=== PATIENT | male | born 1955 | race American Indian/Alaskan Native ===

== ENCOUNTER 2016-09-29 08:40 | Emergency (ER) | payer OTHER ==
[2016-09-29] MEDS ORDERED: REGLAN IV ONE (09:16)
[2016-09-29] MEDS ORDERED: BENADRYL IV ONE (09:16)
--- NOTE | 2016-09-29 10:10 | Cat Scan Report ---
Contrast: History: Headache. Findings: Ventricles are normal in size and midline in location. No evidence of acute ischemia, hemorrhage or mass. No extra axial fluid collection. Normal brainstem and cerebellum. Normal sinuses and mastoid air cells. Impression: Essentially negative CT scan of head.
[2016-09-29 10:22] VITALS: BP 124/80
--- NOTE | 2016-09-29 21:43 | Emergency Department Report ---
Entered by JADA REYES, acting as scribe for MARY DUBON NP. ED Headache HPI - General Chief Complaint: Headache Stated Complaint: MIGRANE/HBP Time Seen by Provider: 09/29/16 09:03 Source: patient Exam Limitations: no limitations - History of Present Illness Initial Comments: 60 year old male with a PMHx of HTN presents to the ED c/o a gradual, acute left -sided headache that began 4 days ago. Patient states he was running 4 days ago and he subsequently began to have a headache at 21:00 that night. Associated symptoms include left eye pain and describes headache as a gradual onset aching and throbbing with intensity of a 7 out of 10, but he denies light sensitivity, visual changes, chest pain, SOB, nausea, thunderclap headache, nausea, and vomiting. Reports headaches worsens with movement and is alleviated by taking Excedrin and BC powders. Patient also stated headache is relieved with darkness. Denies any recent head trauma and Hx of migranes. Denies taking any medication [employer]. Patient was brought the ED by his fiance. Allergic to penicillins. Timing/Duration: other (4 days) Quality: moderate, throbbing Head Injury Location: frontal (left) Recent Head Trauma: no recent headache/trauma Modifying Factors: improves with: medication (Excedrin and BC powders), rest, other (darkness). worse with: movement Associated Symptoms: denies symptoms, other (left eye pain and swelling). denies: confusion, fatigue, fever/chills, loss of consciousness, nausea/vomiting , nasal congestion, nasal drainage, numbness in legs/feet, seizures, sinus infection, stiff neck, vision changes, weakness Allergies/Adverse Reactions: Allergies Penicillins Allergy (Verified 09/29/16 08:54) Hives Home Medications: Ambulatory Orders Ibuprofen [Motrin 600 MG tab] 600 mg PO Q8H PRN 5 Days 09/29/16 ED Review of Systems Comment: All other systems reviewed and negative Constitutional: denies: chills, fever, weakness, other Eyes: eye pain (left eye). denies: vision change ENT: denies: ear pain, throat pain Respiratory: denies: cough, orthopnea, shortness of breath, SOB with exertion, SOB at rest, stridor Cardiovascular: denies: chest pain, dyspnea on exertion, orthopnea Endocrine: no symptoms reported Gastrointestinal: denies: nausea, vomiting Genitourinary: denies: urgency, dysuria Musculoskeletal: other (left eye swelling) Skin: denies: rash, lesions Neurological: headache (left sided headache). denies: numbness Psychiatric: denies: anxiety, depression Hematological/Lymphatic: denies: easy bleeding, easy bruising ED Past Medical Hx - Past Medical History Hx Hypertension: Yes - Surgical History Past Surgical History?: No - Social History Smoking Status: Never Smoker Substance Use Type: Alcohol - Medications Home Medications: Home Medications Medication Instructions Recorded Confirmed Last Taken Type Ibuprofen [Motrin 600 MG tab] 600 mg PO Q8H PRN 5 Days 09/29/16 Unknown Rx ED Physical Exam - General Limitations: No Limitations General appearance: alert, in no apparent distress - Head Head exam: Present: atraumatic, normocephalic - Eye Eye exam: Present: normal appearance, PERRL, EOMI. Absent: scleral icterus, conjunctival injection Pupils: Present: normal accommodation - ENT ENT exam: Present: normal exam, normal orophraynx, mucous membranes moist, TM's normal bilaterally, normal external ear exam - Neck Neck exam: Present: normal inspection, full ROM. Absent: tenderness, lymphadenopathy - Respiratory Respiratory exam: Present: normal lung sounds bilaterally. Absent: respiratory distress, wheezes, rales, rhonchi, stridor - Cardiovascular Cardiovascular Exam: Present: regular rate, normal rhythm. Absent: systolic murmur, diastolic murmur, rubs, gallop - GI/Abdominal GI/Abdominal exam: Present: soft - Extremities Exam Extremities exam: Present: normal inspection, full ROM, normal capillary refill. Absent: tenderness, pedal edema, joint swelling, calf tenderness - Back Exam Back exam: Present: normal inspection, full ROM. Absent: tenderness, CVA tenderness (R), CVA tenderness (L) - Neurological Exam Neurological exam: Present: alert, oriented X3, CN II-XII intact, normal gait - Expanded Neurological Exam Expanded Patient oriented to: Present: person, place, time Speech: Present: fluid speech Cranial nerves: EOM's Intact: Normal, Gag Reflex: Normal, Tongue Deviation: Normal, Nystagmus: Normal, Facial Sensation: Normal, Facial Palsy with Forehead Movement: Normal, Facial Palsy without Forehead Movement: Normal Cerebellar function: Finger to Nose: Normal, Heel to Santana: Normal, Romberg: Normal Upper motor neuron: Pronator Drift: Normal, Sensory Extinction: Normal Sensory exam: Upper Extremity Light Touch: Normal, Upper Extremity Pin Prick: Normal, Upper Extremity Temperature: Normal, UE 2 Point Discrimination: Normal, Lower Extremity Light Touch: Normal, Lower Extremity Pin Prick: Normal, Lower Extremity Temperature: Normal, LE 2 Point Discrimination: Normal Motor strength exam: RUE: 5, LUE: 5, RLE: 5, LLE: 5 Best Eye Response ([place]): (4) open spontaneously Best Motor Response ([place]): (6) obeys commands Best Verbal Response ([place]ell): (5) oriented Nitin Total: 15 - Psychiatric Psychiatric exam: Present: normal affect, normal mood - Skin Skin exam: Present: warm, dry, intact. Absent: rash ED Course Vital Signs 09/29/16 08:54 Temperature 98.4 F Pulse Rate 102 H Respiratory 16 Rate Blood Pressure 142/95 O2 Sat by Pulse 99 Oximetry - Reevaluation(s) Reevaluation #1: 09/29/16 10:16 Reevaluation of patient. Patient is resting comfortably with no signs of distress. Patient stated headache has subsided 0/10. Stated feels like a "new person". ED Medical Decision Making - Medical Decision Making Ed course: 61-year-old male that presents with headache 4 days 1- patient received Benadryl 25 mg and Reglan 10 mg in the ED. Patient stated headache has completely subsided with the pain level is 0-10. 2- I instructed patient to follow-up with PCP/neurologist in 3-5 days or if symptoms worsen such as blurry vision, abrupt onset of thunderclap headache, nausea vomiting, chest pain, shortness of breath, and to report to emergency department if symptoms of these are present. 3- Patient fiance is present at the time of d/c and stated will drive patient home 4- At the time of d/c, patient does not seem toxic or ill in appearnce. No signs of distress noted. Agrees to d/c plan and treatment. No furthur questions noted by the patient at the time of d/c. 5-I obtained a CT scan of the brain due to age and history of hypertension and tachycardia. CT scan results: Normal. Negative Ct scan,. 6- [place] Subarachnoid Hemorrhage (SAH) Rule for Headache Evaluation: Cannot Rule Out This patient cannot be ruled out for subarachnoid hemorrhage by the [place] SAH Rule (the rule was 100% sensitive for SAH but only 15% specific for SAH). ADVICE: Consider SAH workup in patients with ANY positive criteria, but as with other rule-out decision aids, just because a patient fails the rule does not require that all patients are then evaluated for SAH, given its very low specificity. ED Disposition Clinical Impression: Headache Disposition: DISCHARGED TO HOME OR SELFCARE Is pt being admited?: No Does the pt Need Aspirin: No Condition: Stable Instructions: Ibuprofen (By mouth), Acute Headache (ED) Additional Instructions: Follow-up with PCP/neurologist in 3-5 days or if symptoms worsen such as blurry vision, abrupt onset of thunderclap headache, nausea vomiting, chest pain, shortness of breath, and to report to emergency department if symptoms of these are present. Take ibuprofen as prescribed as needed. Prescriptions: Ibuprofen [Motrin 600 MG tab] 600 mg PO Q8H PRN 5 Days PRN Reason: Pain Referrals: PRIMARY CARE, [Primary Care Provider] - 3-5 Days DARREN LAY JR, MD [Referring] - 3-5 Days Forms: Work/School Release Form(ED) This documentation as recorded by the ERIC gonzalez JASMINE,accurately reflects the service I personally performed and the decisions made by LING hutson MARTIN, KACIE.
== END 2016-09-29 11:03 | disposition home or self-care (01) ==
LOC: ED 08:40
DX: R51 Headache (principal); I10 Essential (primary) hypertension
CPT/HCPCS: 70450; 96374; 96375; 99283; J1200; J2765